=== PATIENT | female | born 1995 | race Caucasian/White ===

== ENCOUNTER 2017-05-22 19:28 | Emergency (ER) | payer MEDICARE, OTHER ==
[~2017-05-22] VITALS: Ht 165.1 cm; Wt 66.0 kg
[2017-05-22 19:41] VITALS: Ht 165.1 cm; Wt 66.0 kg
[2017-05-22 21:57] LABS: ADD SCAN DIFF NO
[2017-05-22 21:59] LABS: BASOPHIL # 0.1 10^3/ul (0.0-0.1); BASOPHILS % 0.5 % (0.0-2.0); EOSINOPHILS % 0.3 % (0.0-7.0); HEMATOCRIT 39.4 % (37.0-47.0); HEMOGLOBIN 12.3 g/dl (12.0-16.0); LYMPHOCYTES # 3.3 10^3/ul (0.8-2.9); LYMPHOCYTES % 30.1 % (15.0-51.0); MEAN CORPUSCULAR HGB CONC 31.2 g/dl (32.0-37.0); MEAN CORPUSCULAR VOLUME 86.6 fl (82.0-101.0); MEAN PLATELET VOLUME 9.6 fl (7.4-10.4); MONOCYTE # 0.6 10^3/ul (0.3-0.9); MONOCYTES % 5.8 % (0.0-11.0); NEUTROPHILS % 62.9 % (39.0-77.0); PLATELET COUNT 301 10^3/UL (140-415); RED BLOOD COUNT 4.55 10^6/ul (4.20-5.40); RED CELL DISTRIBUTION WIDTH 14.2 % (11.5-14.5); WHITE BLOOD COUNT 11.1 10^3/ul (4.8-10.8)
[2017-05-22 22:20] LABS: ADD UMIC YES; UR ASCORBIC ACID 40 mg/dL (NEGATIVE); UR BILIRUBIN (Dip) NEGATIVE (NEGATIVE); UR BLOOD (Dip) NEGATIVE (NEGATIVE); UR CLARITY SLIGHTLY CLOUDY (CLEAR); UR COLOR YELLOW (YELLOW); UR GLUCOSE (Dip) NEGATIVE (NEGATIVE); UR KETONES (Dip) TRACE mg/dL (NEGATIVE); UR LEUKOCYTE ESTERASE (Dip) TRACE Leu/ul (NEGATIVE); UR MUCUS MANY /HPF (NONE SEEN); UR NITRITE (Dip) NEGATIVE (NEGATIVE); UR RBC 0 /HPF (0-5); UR SPECIFIC GRAVITY (Dip) 1.035 (1.003-1.030); UR TOTAL PROTEIN (Dip) 1+ mg/dl (NEGATIVE); UR UROBILINOGEN (Dip) NEGATIVE (NEGATIVE)
[2017-05-22 22:21] LABS: ALANINE AMINOTRANSFERASE 28 IU/L (13-69); ALBUMIN 5.2 g/dl (3.3-4.9); ALBUMIN/GLOBULIN RATIO 1.48; ALKALINE PHOSPHATASE 55 IU/L (42-121); ANION GAP 18 (8-16); ASPARTATE AMINO TRANSFERASE 24 IU/L (15-46); BILIRUBIN,INDIRECT 0.9 mg/dl (0-1.1); BILIRUBIN,TOTAL 0.9 mg/dl (0.2-1.3); BLOOD UREA NITROGEN 16 mg/dl (7-20); CALCIUM 10.1 mg/dl (8.4-10.2); CARBON DIOXIDE 23 mmol/L (21-31); CHLORIDE 97 mmol/L (97-110); CREATININE 0.78 mg/dl (0.44-1.00); GLUCOSE 88 mg/dl (70-220); POTASSIUM 3.6 mmol/L (3.5-5.1); SODIUM 134 mmol/L (135-144); TOTAL PROTEIN 8.7 g/dl (6.1-8.1)
[2017-05-22 22:25] LABS: COCAINE Negative (NEGATIVE)
[2017-05-22 22:35] LABS: BARBITURATES Negative (NEGATIVE); BENZODIAZEPINES Negative (NEGATIVE); CANNABINOIDS Positive (NEGATIVE); OPIATES Negative (NEGATIVE)
[2017-05-22] MEDS ORDERED: AZITHROMYCIN 250 MG TAB PO ONE (23:30)
[2017-05-22] MEDS ORDERED: CEFTRIAXONE 250 MG INJ IM ONE (23:30)
[2017-05-22] MEDS ORDERED: LIDOCAINE 2% (MDV) 20 ML INJ INJ ONE (23:30)
--- NOTE | 2017-05-22 23:46 | ERD ---
ER Documentation Chief Complaint Date/Time DATE: 05/22/17 TIME: 23:38 Chief Complaint face swelling since yesterday HPI This is a 21-year-old female presents with both of her parents to the ER. Patient is autistic and is living with her parents. Per mother she recently found out that patient has been an online dating websites, and admitted to having unprotected sex, with an unknown amount of different man. Patient is functioning however not able to make any decisions on her own, mother does not know if patient consented to sex or not. Mother also found out that patient has been doing drugs, and does not know which drug she is on. Per mother patient states looks more round like "li." Patient does not have any fever or chills. She denies any pain. She does not know or cold symptoms. She has not been having nausea vomiting or diarrhea. Patient is not very verbal, however does nod in agreement or disagreement. ROS 12 point review of systems was done, all negative except per HPI. Allergies Allergies: Coded Allergies: No Known Allergy (Unverified , 05/22/17) PMhx/Soc History of Surgery: No Anesthesia Reaction: No Hx Neurological Disorder: No Hx Respiratory Disorders: No Hx Cardiac Disorders: No Hx Psychiatric Problems: No Hx Miscellaneous Medical Probl: Yes (Autism) Hx Alcohol Use: No Hx Substance Use: No Hx Tobacco Use: No Smoking Status: Never smoker Physical Exam Vitals Physical Exam GENERAL: Patient has strange mood and affect, does not have a eye contact. HEENT: Atraumatic. Conjunctivae are pink. Pupils equal, round, and reactive to light. Extraocular muscles are grossly intact. Bilateral tympanic membranes are clear with no evidence of erythema, effusion or dulling of the light reflex. The oropharynx is clear with no erythema or exudates. There is no evidence of dental abscess, uvular deviation, kissing tonsils. No erythema of the face, there is no noticeable swelling. NECK: C-spine is soft and supple. There is no cervical lymphadenopathy. CHEST: Clear to auscultation bilaterally. There are no rales, wheezes or rhonchi. HEART: Regular rate and rhythm. No murmurs, clicks, rubs or gallops. ABDOMEN: Soft, nontender and nondistended. NEURO: Alert and oriented. Results 24 hrs Laboratory Tests Test 05/22/17 21:46 05/22/17 22:00 White Blood Count 11.110^3/ul Red Blood Count 4.5510^6/ul Hemoglobin 12.3g/dl Hematocrit 39.4% Mean Corpuscular Volume 86.6fl Mean Corpuscular Hemoglobin 27.0pg Mean Corpuscular Hemoglobin Concent 31.2g/dl Red Cell Distribution Width 14.2% Platelet Count 83290^3/UL Mean Platelet Volume 9.6fl Neutrophils % 62.9% Lymphocytes % 30.1% Monocytes % 5.8% Eosinophils % 0.3% Basophils % 0.5% Nucleated Red Blood Cells % 0.0/100WBC Neutrophils # 7.010^3/ul Lymphocytes # 3.310^3/ul Monocytes # 0.610^3/ul Eosinophils # 0.010^3/ul Basophils # 0.110^3/ul Nucleated Red Blood Cells # 0.010^3/ul Urine Color YELLOW Urine Clarity SLIGHTLY CLOUDY Urine pH 5.0 Urine Specific [place] 1.035 Urine Ketones TRACEmg/dL Urine Nitrite NEGATIVEmg/dL Urine Bilirubin NEGATIVEmg/dL Urine Urobilinogen NEGATIVEmg/dL Urine Leukocyte Esterase TRACELeu/ul Urine Microscopic RBC 0/HPF Urine Microscopic WBC 4/HPF Urine Mucus MANY/HPF Urine Hemoglobin NEGATIVEmg/dL Urine Glucose NEGATIVEmg/dL Urine Total Protein 1+mg/dl Sodium Level 134mmol/L Potassium Level 3.6mmol/L Chloride Level 97mmol/L Carbon Dioxide Level 23mmol/L Anion Gap 18 Blood Urea Nitrogen 16mg/dl Creatinine 0.78mg/dl Glucose Level 88mg/dl Calcium Level 10.1mg/dl Total Bilirubin 0.9mg/dl Direct Bilirubin 0.00mg/dl Indirect Bilirubin 0.9mg/dl Aspartate Amino Transf (AST/SGOT) 24IU/L Alanine Aminotransferase (ALT/SGPT) 28IU/L Alkaline Phosphatase 55IU/L Total Protein 8.7g/dl Albumin 5.2g/dl Globulin 3.50g/dl Albumin/Globulin Ratio 1.48 Urine Opiates Screen Negative Urine Barbiturates Negative Urine Amphetamines Screen POSITIVE Urine Benzodiazepines Screen Negative Urine Cocaine Screen Negative Urine Cannabinoids Positive Chlamydia trachomatis RNA (TMA) NOT DETECTED Chlamydia/GC Comment SEE NOTE HIV (1&2) Antibody NEGATIVE Neisseria gonorrhoeae RNA (TMA) NOT DETECTED Urine Test NEGATIVE Current Medications Medications (Trade) Dose Ordered Sig/Adina Route PRN Reason Start Time Stop Time Status Last Admin Dose Admin Ceftriaxone Sodium (Rocephin) 250 mg ONCE ONCE IM 05/22/17 23:30 05/22/17 23:31 DC 05/22/17 23:24 Lidocaine (Xylocaine 2% (Mdv) 20 ml) 20 ml ONCE ONCE INJ 05/22/17 23:30 05/22/17 23:31 DC 05/22/17 23:24 Azithromycin (Zithromax) 1,000 mg ONCE ONCE PO 05/22/17 23:30 05/22/17 23:31 DC 05/22/17 23:24 Procedures/MDM This is a 21-year-old female that presents to the ER with both of her parents for evaluation. Patient did test positive for amphetamine use. Patient's parents are not sure if patient consented to sex, and they are not able to find out who these men are. He has parents that they had contacted police about this , per parents they have been secondary to not knowing who her daughter is having sex with. Patient got an STD panel, and was prophylactically treated for gonorrhea and chlamydia. I asked patient if it was okay to draw blood and get urine to test for her general health,, drugs and STDs. Patient nodded her head up and down and said yes. In regards to patient's swelling the parents noticed, they did show me a picture patient about a month ago and her face did look skinnier, however there is only rounding of the face on physical examination. 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 At this time suspicion for abscess, cellulitis, deep space infection, Sergio's angina, deep cavernous thrombosis is low. Patient's physical examination is benign and she is afebrile and well-appearing. I do not believe that CT imaging is needed at this time as the risk of radiation outweighs the benefits. Patient is to follow-up with her primary care doctor within 1-2 days return to ER sooner if symptoms worsen. My medical decision making was shared with both parents, and patient they all understand and agree with plan. Departure Diagnosis: Primary Impression: Drug use Condition: Stable Patient Instructions: Drug Abuse Additional Instructions: Call your primary care doctor TOMORROW for an appointment during the next 1-2 days.See the doctor sooner or return here if your condition worsens before your appointment time. JOHN THOMAS May 22, 2017 23:46
== END 2017-05-22 23:48 | disposition home or self-care (01) ==
LOC: FTE 19:28 → EDUNIT# 19:28 → FTE 23:48
DX: F15.90 Other stimulant use, unspecified, uncomplicated (principal); F84.0 Autistic disorder
CPT/HCPCS: 80053; 80307; 81001; 84703; 85025; 86703; 87591; 96372; 99284; J0696

== ENCOUNTER 2017-10-30 10:07 | Emergency (ER) | payer MEDICARE, OTHER ==
[~2017-10-30] VITALS: Ht 165.1 cm; Wt 65.5 kg
[2017-10-30 10:09] VITALS: Ht 165.1 cm; Wt 65.5 kg
--- NOTE | 2017-10-30 11:04 | ERD ---
ER Documentation Chief Complaint Chief Complaint cough , sore throat HPI 22y/o female patient with no significant medical, presents to the emergency department with mother c/o gradual onset of dry cough, nocturnal, that started 4 weeks ago. Associated with sore throat predominantly in the mornings, runny nose and itchy throat.. The symptoms are probably caused by allergies and are associated with sneezing. Aggravating factors: Changes in weather. Denies chest pain, shortness of breath, fever, chills, N/V/D. Treatment attempted: None. History was given by patient and mother. ROS SYSTEMIC symptoms: no fever, chills, no night sweats, no weight loss EYE symptoms: No blurred vision, no eye discharge OTOLARYNGEAL symptoms: No hearing loss. No ear pain, no sore throat CARDIOVASCULAR symptoms: No chest pain or discomfort, no palpitations. PULMONARY symptoms: No dyspnea, no cough, no wheezing. GASTROINTESTINAL symptoms: No abdominal pain, no nausea, no vomiting, no diarrhea MUSCULOSKELETAL symptoms: No arthralgias, no muscle aches. NEUROLOGY symptoms: No confusion, no syncope, no numbness or tingling. SKIN: No rashes Medications Home Meds Active Scripts Fexofenadine Hcl* (Fexofenadine Hcl*) 180 Mg Tablet, 180 MG PO DAILY, #30 TAB Prov:WILLARD FULTON MD 10/30/17 Ranitidine Hcl* (Zantac*) 150 Mg Tablet, 150 MG PO BID for 10 Days, #20 TAB Prov:WILLARD FULTON MD 10/30/17 Allergies Allergies: Coded Allergies: No Known Allergy (Unverified , 05/22/17) PMhx/Soc History of Surgery: No Anesthesia Reaction: No Hx Neurological Disorder: No Hx Respiratory Disorders: No Hx Cardiac Disorders: No Hx Psychiatric Problems: No Hx Miscellaneous Medical Probl: Yes (Autism) Hx Alcohol Use: No Hx Substance Use: No Hx Tobacco Use: No Smoking Status: Never smoker Physical Exam Vitals Vital Signs Date Time Temp Pulse Resp B/P Pulse Ox O2 Delivery O2 Flow Rate FiO2 10/30/17 10:09 98.5 66 20 129/70 100 Physical Exam Patient is in no acute distress, vital signs stable. Alert and fully oriented. EYES: PERRLA, EOMI, Sclera and conjunctiva appear normal. EARS: Canals clear, tympanic membranes WNL THROAT: Normal oropharynx. NECK: Supple, No lymphadenopathy. Full ROM without pain or tenderness. HEART: RRR, no rubs, murmurs, clicks or gallops. LUNGS: Clear to auscultation. ABDOMEN: Soft, non-tender without masses or hepatosplenomegaly. EXTREMITIES: No edema bilaterally. BACK: Full ROM, no deformity, normal back exam NEURO: Cranial nerves grossly intact, no motor or sensory deficit Procedures/MDM 22-year-old female, previously healthy, presents the emergency department complaining of 4 weeks of dry cough and sore throat. Vital signs stable, physical exam unremarkabley. Differential diagnosis include but not limited to : Respiratory infection bacterial/viral/fungal. Asthma/COPD, pneumonitis, allergies, GERD. Less likely foreign body aspiration, cardiac related, aspiration pneumonia, malignancy. Physical examination and clinical presentation consistent most likely with allergic cough. During the ED course the patient remained stable, no new complaints. Results and clinical impression discussed with patient who agrees with management. The patient is stable to be treated outpatient and will be discharged home with a Rx for fexofenadine and ranitidine, some side effects of prescribed medications (headache, rash, nausea, vomiting, diarrhea, drowsiness, habituation, bleeding, hypertension, interactions with other medications) were reviewed. The patient was instructed to follow up with the primary care provider in the next 48h. If symptoms persist, worsen or new symptoms develop, then patient should return to the ED immediately. Instructions explained and given directly by me to the patient in Occitan with acknowledgment and demonstrated understanding. Disclaimer: Inadvertent spelling and grammatical errors are likely due to EHR/ dictation software use and do not reflect on the overall quality of patient care. Also, please note that the electronic time recorded on this note does not necessarily reflect the actual time of the patient encounter. Departure Diagnosis: Primary Impression: Allergic cough Condition: Stable Additional Instructions: Call your primary care doctor TOMORROW for an appointment during the next 1-2 days. See the doctor sooner or return here if your condition worsens before your appointment time. Thank you very much for allowing us to participate in your care. Your health and safety is our top priority at [facility]. Have prescriptions filled and follow precisely the directions on the label. Follow-up with primary care provider during the next 4 days and bring all the information and medications prescribed. If illness has not improved in 2 days, then make an appointment with primary care provider. If the provider is unavailable, return to the Emergency Department immediately. WILLARD FULTON MD Oct 30, 2017 11:04
[2017-10-30] MEDS ORDERED: RANI150T9 PO (11:06)
[2017-10-30] MEDS ORDERED: FEXO-62 PO (11:06)
== END 2017-10-30 11:22 | disposition home or self-care (01) ==
LOC: FTE 10:07
DX: R05 Cough (principal); F84.0 Autistic disorder
CPT/HCPCS: 99283